=== PATIENT | female | born 1960 | race Asian ===

== ENCOUNTER 2018-11-30 16:03 | Emergency (ER) | payer OTHER ==
[~2018-11-30] VITALS: Ht 154.9 cm; Wt 65.8 kg
[2018-11-30 16:24] VITALS: BP 169/76
--- NOTE | 2018-11-30 19:47 | NUR ---
PT AMBULATED TO BED 03.
[2018-11-30 19:56] LABS: APPEARANCE,URINE CLEAR (CLEAR); BILIRUBIN,URINE NEGATIVE (NEGATIVE); BLOOD, URINE NEGATIVE (NEGATIVE); COLOR,URINE YELLOW (YELLOW); LEUKOCYTE ESTERASE ,URINE NEGATIVE (NEGATIVE); NITRITE, URINE NEGATIVE (NEGATIVE); UGLUCOSE NEGATIVE (NEGATIVE)
[2018-11-30 20:05] VITALS: BP 146/71
--- NOTE | 2018-11-30 20:05 | NUR ---
58 Y/O F PRESENTS TO ED WITH C/O URINIARY BURNING FOR 3 MONTHS. AAOX4. PT WAS PRESCRIBED FLAGYL, KEFLEX, AND CLINDAMYCIN. PT HAS PERSISTENT URINARY BURNING. PT HAS APPOINTMENT TO SEE PCP BUT THE URINIARY BURNING "WAS TOO BAD." ABDOMEN SOFT AND NON-TENDER. BOWEL SOUNDS PRESENT [id number]. PT FAMILY AT BEDSIDE. WILL CONTINUE TO MONITOR.
--- NOTE | 2018-11-30 20:25 | NUR ---
SPECIMEN TAKEN TO LAB.
--- NOTE | 2018-11-30 21:16 | NUR ---
Patient discharged with v/s stable. Written and verbal after care instructions given and explained. Patient alert, oriented and verbalized understanding of instructions. Ambulatory with steady gait. All questions addressed prior to discharge. ID band removed. Patient advised to follow up with PMD. Rx of pyridum and premarin given. Patient educated on indication of medication including possible reaction and side effects. Opportunity to ask questions provided and answered.
== END 2018-11-30 21:16 | disposition home or self-care (01) ==
LOC: MED 16:03
DX: N76.0 Acute vaginitis (principal)
CPT/HCPCS: 81003; 87210; 99283